=== PATIENT | female | born 1990 | race Caucasian/White ===

== ENCOUNTER → 2023-05-31 15:44 | Outpatient (CLI) | payer OTHER, SELFPAY ==
[2023-05-31 16:55] LABS: Add Manual Diff / Slide Review NO; Basophils Absolute Auto 0 /uL (0-100); Basophils Percent Auto 0.1 % (0-2); Eosinophils Absolute Auto 100 /uL (0-450); Eosinophils Percent Auto 1.4 % (2-4); Hematocrit 37.2 % (36-46); Hemoglobin 12.8 g/dL (12.0-16.0); Lymphocytes Absolute Auto 1600 /uL (1100-4500); Lymphocytes Percent Auto 19.3 % (25-40); Mean Corpuscular HGB Conc 34.3 % (30-36); Mean Corpuscular Volume 96.1 fL (80-100); Monocytes Absolute Auto 400 /uL (0-900); Monocytes Percent Auto 5.1 % (3-14); Neutrophils Absolute Auto 6100 /uL (1500-7000); Neutrophils Percent Auto 74.1 % (50-75); Platelet Count 255 X10^3/uL (150-400); Red Blood Cell Count 3.87 X10^6/uL (4.0-5.2); Red Cell Distribution Width 12.7 % (11.6-14.8); White Blood Cell Count 8.3 X10^3/uL (4.5-11.0)
[2023-05-31 16:56] LABS: Appearance Urine UA CLEAR; Bilirubin Urine UA NEGATIVE (NEGATIVE); Color Urine UA YELLOW; Glucose Urine UA NEGATIVE (Negative); Ketones Urine UA NEGATIVE (NEGATIVE); Leukocyte Esterase Urine UA NEGATIVE (NEGATIVE); Nitrite Urine UA NEGATIVE (Negative); Occult Blood Urine UA NEGATIVE (Negative); Protein Urine UA NEGATIVE (Negative); Urobilinogen Urine UA 0.2 E.U./dL (0.2)
[2023-05-31 17:27] LABS: pH Urine UA 6.5 (4.5-8.0)
[2023-05-31 19:03] LABS: Urine N gonorrhoeae NOT DETECTED
[2023-05-31 19:08] LABS: Urine Chlamydia NOT DETECTED
[2023-06-02 16:15] LABS: Varicella IgG Antibody 3661 index (Immune >165)
[2023-06-03 07:35] LABS: Hepatitis B Surface Antigen NEGATIVE s/c (NEGATIVE); Rubella Antibody IgG 65.7 IU/mL (>15)
[2023-06-03 07:49] LABS: HIV 1 & 2 Ab/Ag 4th Gen Combo NEGATIVE (NEGATIVE); Hep C Virus Ab w/Reflex Quant NEGATIVE s/c (NEGATIVE)
[2023-06-04 05:14] LABS: RPR Screen Non Reactive (Non Reactive)
== END ==
PROVIDERS: PCP Family Medicine; Referring Provider Family Medicine; Visit Provider Family Medicine
DX: Z34.01 Encounter for supervision of normal first pregnancy, first trimester (principal)
CPT/HCPCS: 36415; 80055; 81003; 84443; 86787; 86803; 86850; 86900; 86901; 87086; 87389; 87491; 87591

== ENCOUNTER → 2023-07-19 06:35 | Outpatient (CLI) | payer OTHER, SELFPAY ==
--- NOTE | 2023-07-19 06:36 | DI.US.S_ITS ---
PROCEDURE: US OB >= 14 WEEKS FETUS INDICATIONS: anatomy scan OUTSIDE/PRIOR DATING DATA: Last menstrual period (LMP): 03/02/2023. LMP-based estimated date of delivery (NANCY): 12/07/2023. First dating scan (date and location): 05/01/2023. Estimated date of delivery (NANCY) from first dating scan: 12/05/2023. The calculations are made using the or acute NANCY of 12/07/2023. TECHNIQUE: Real-time scanning was performed of the fetus, with image documentation and biometric measurements. Endovaginal scanning: Not performed COMPARISON: None. FINDINGS: General: A single living intrauterine gestation is present. Presentation: Vertex. Placenta: Placental position is posterior frontal , without previa. Amniotic fluid index: 16.1 cm, normal range is 5-24 cm. Single deepest vertical pocket is 4.4 cm. heart rate: 155 beats per minute. Maternal cervical canal: 3.8 cm long. Normal lower limit is 2.5 cm. biometrics: Biparietal diameter: 21 weeks 4 days Head circumference: 21 weeks 3 days Abdominal circumference: 21 weeks 2 days Femur length: 20 weeks 1 day Clinically estimated gestational age: 19 weeks 1 day Composite gestational age from present scan: 21 weeks 6 day Estimated weight and percentile: 381 g; 91% for gestational age. Anatomic survey: Neuro: Ventricles are non-dilated at less than 10 mm. Cisterna magna is normal at 3-11 mm. Cerebellum is normal in size and morphology. Nuchal skin fold: Normal at less than 6 mm between 14-21 weeks gestational age. Face: Nose and lips, facial profile are normal. Spine: No evidence for spina bifida. Heart: 4-chambered heart is present, with normal ventricular outflow tracts. Diaphragm: Diaphragm is intact. Stomach: Left-sided stomach is present. Kidneys: No hydronephrosis. Normal is less than 5 mm in 2nd trimester, less than 7 mm in 3rd trimester. Cord: 3-vessel cord has orthotopic insertion. Bladder: Normal in size. Extremities: All 4 extremities identified. IMPRESSION: 1. A single living intrauterine gestation is present. Ultrasound dating concordant with clinical dating. 2. Normal anatomic survey. We strive to produce accurate, complete, and clear reports of imaging services. To assist us in improving patient care, this report was composed using standard report templates and voice recognition software. Therefore, it may contain abnormal punctuation, insertions and/or omissions. Occasional wrong-word or sound-alike substitutions may occur. Though we review the report and make efforts to correct it, we do recommend that the report be read carefully in proper context to recognize any text inaccuracies. Dictated by: Tye Pendleton M.D. on 07/19/2023 at 15:22 Approved by: yTe Pendleton M.D. on 07/19/2023 at 15:29
== END ==
PROVIDERS: PCP Family Medicine; Referring Provider Family Medicine; Visit Provider Family Medicine
DX: Z34.02 Encounter for supervision of normal first pregnancy, second trimester (principal); Z3A.21 21 weeks gestation of pregnancy
CPT/HCPCS: 76811

== ENCOUNTER → 2023-08-31 08:31 | Outpatient (CLI) | payer OTHER, SELFPAY ==
[2023-08-31 10:25] LABS: Hemoglobin 10.9 g/dL (12.0-16.0)
[2023-08-31 11:09] LABS: GTT (PREG) 1 Hour PP 50gm Dose 100 mg/dL (76-139)
== END ==
LOC: LAB 08:32
PROVIDERS: PCP Family Medicine; Referring Provider Student in an Organized Health Care Education/Training Program; Visit Provider Student in an Organized Health Care Education/Training Program
DX: Z34.02 Encounter for supervision of normal first pregnancy, second trimester (principal); Z3A.26 26 weeks gestation of pregnancy
CPT/HCPCS: 36415; 82950; 85014; 85018

== ENCOUNTER → 2023-11-12 08:22 | Outpatient (CLI) | payer OTHER, SELFPAY ==
[2023-11-13 13:29] LABS: Strep Grp B PCR NEG for Grp B Strep
== END ==
PROVIDERS: PCP Family Medicine; Visit Provider Student in an Organized Health Care Education/Training Program
DX: Z34.03 Encounter for supervision of normal first pregnancy, third trimester (principal); Z3A.36 36 weeks gestation of pregnancy
CPT/HCPCS: 87653

== ENCOUNTER → 2023-11-12 08:43 | Outpatient (CLI) | payer OTHER, SELFPAY ==
[2023-11-12 10:22] LABS: Hematocrit 31.7 % (36-46); Hemoglobin 10.8 g/dL (12.0-16.0)
== END ==
PROVIDERS: PCP Family Medicine; Referring Provider Student in an Organized Health Care Education/Training Program; Visit Provider Student in an Organized Health Care Education/Training Program
DX: O99.019 Anemia complicating pregnancy, unspecified trimester (principal)
CPT/HCPCS: 36415; 85014; 85018; 87653

== ENCOUNTER 2023-11-27 22:18 | Inpatient (IN) | payer OTHER, SELFPAY ==
[2023-11-27 23:47] LABS: Add Manual Diff / Slide Review NO; Basophils Absolute Auto 0 /uL (0-100); Basophils Percent Auto 0.2 % (0-2); Eosinophils Absolute Auto 200 /uL (0-450); Eosinophils Percent Auto 1.9 % (2-4); Hematocrit 34.6 % (36-46); Hemoglobin 11.7 g/dL (12.0-16.0); Lymphocytes Absolute Auto 1200 /uL (1100-4500); Lymphocytes Percent Auto 12.3 % (25-40); Mean Corpuscular HGB Conc 33.7 % (30-36); Mean Corpuscular Hemoglobin 29.6 PG (26-34); Mean Corpuscular Volume 87.9 fL (80-100); Monocytes Absolute Auto 800 /uL (0-900); Monocytes Percent Auto 8.2 % (3-14); Neutrophils Absolute Auto 7700 /uL (1500-7000); Neutrophils Percent Auto 77.4 % (50-75); Platelet Count 206 X10^3/uL (150-400); Red Blood Cell Count 3.94 X10^6/uL (4.0-5.2)
[2023-11-28] MEDS: LACTATED RINGERS 1,000 ML 100 ML IV ×5 (02:16→20:41)
--- NOTE | 2023-11-28 03:46 | P.PCN_ITS ---
[facility] <Tequila Sarabia, DO - Last Filed: 11/28/23 13:26> Pre-procedure Procedure: Continuous Lumbar Epidural for L&D (with dural puncture) Attending OB provider: Marion TELLO/ASHANTI narrative: 33yo in labor requesting epidural. See pre-anesthesia evaluation for further details. ASA Class: II Labs: Hct 34.6 % (36-46) L 11/27/23 23:08 Plt Count 206 X10^3/uL (150-400) 11/27/23 23:08 Medications: Current Medications Generic Name Dose Route Start Last Admin Trade Name Freq PRN Reason Stop Dose Admin Calcium Carbonate 1,000 mg 11/27/23 23:16 Calcium Carbonate 500 Mg Tab PO Q2HR PRN Dyspepsia Carboprost Tromethamine 250 mcg 11/27/23 23:16 Carboprost 250 Mcg/Ml Ampul IM Q90M PRN Bleeding Diphenhydramine HCl 25 mg 11/28/23 03:44 Diphenhydramine 50 Mg/Ml Vial IV Q10M PRN Pruritis Ephedrine Sulfate 10 mg 11/28/23 03:44 Ephedrine 50 Mg/Ml Vial IV Q5M PRN Blood pressure decrease more than 20% of baseline. Fentanyl 50 mcg 11/27/23 23:16 Fentanyl 100 Mcg/2 Ml Inj IV Q1H PRN Pain, Moderate (4-6) Lactated Ringer's 1,000 mls @ 100 mls/hr 11/27/23 23:30 11/28/23 03:38 Lactated Ringers IV 11/28/23 09:29 100 mls/hr CONT CORBY Administration Oxytocin/Lactated Ringer's 30 unit in 500 mls @ 200 mls/hr 11/27/23 23:16 Oxytocin Premix IV CONT PRN Bleeding Protocol Tranexamic Acid 1,000 mg/ 100 mls @ 600 mls/hr 11/27/23 23:16 Sodium Chloride IV NOW PRN Bleeding FENT 2MCG/ML BUPIV 0.125% EPI 200 mcg in 100 mls @ 6 mls/hr 11/28/23 03:45 Fentanyl/Bupiv/Ns 2mcg/Ml - 0.125% EPIDURAL CONT CORBY Lidocaine HCl 20 ml 11/27/23 23:16 Lidocaine 1% 20 Ml INJ INTRA-OP PRN Post Delivery Methylergonovine Maleate 0.2 mg 11/27/23 23:16 Methylergonovine 0.2 Mg Tablet PO Q6HR PRN Heavy Bleeding Methylergonovine Maleate 0.2 mg 11/27/23 23:16 Methylergonovine 0.2 Mg/Ml Vial IM NOW PRN Bleeding Mineral Oil 30 ml 11/27/23 23:16 Mineral Oil 30 Ml Udc TOP PRN PRN Version Misoprostol 800 mcg 11/27/23 23:16 Misoprostol 200 Mcg Tablet MD NOW PRN Bleeding Misoprostol 400 mcg 11/27/23 23:16 Misoprostol 200 Mcg Tablet SL NOW PRN Bleeding Nalbuphine HCl 2.5 mg 11/28/23 03:44 Nalbuphine 20 Mg/Ml Ampul IV Q10M PRN Pruritis Naloxone HCl 0.2 mg 11/27/23 23:16 Naloxone 0.4 Mg/Ml Vial IV Q2MIN PRN Opiate Reversal Ondansetron HCl 4 mg 11/27/23 23:16 Ondansetron 4 Mg/2 Ml Inj IV Q4HR PRN Nausea And Vomiting Oxytocin 10 unit 11/27/23 23:16 Oxytocin 10 Unit/Ml Vial IM NOW PRN Bleeding Allergies: Allergies Allergy/AdvReac Type Severity Reaction Status Date / Time amoxicillin Allergy Severe hives Verified 11/12/23 08:21 bill Allergy Intermediate Swelling Verified 11/12/23 08:21 of Lip/Tongue/Throat pecan nut Allergy Intermediate hives Verified 11/12/23 08:21 shellfish derived Allergy Intermediate hives Verified 11/12/23 08:21 Sulfa (Sulfonamide Allergy Intermediate Hives Verified 11/12/23 08:21 Antibiotics) melatonin AdvReac Severe night Verified 11/12/23 08:21 terrors gluten AdvReac Mild Abdominal Verified 11/12/23 08:21 Pain Procedure Insertion date: 11/28/23 Insertion time: 03:20 Prep/Local: 1% lidocaine (Chloraprep) Interspace: L2-3 Patient position: sitting Needle: 18 gauge Hustead (27g 5 Pencan for dural puncture) Loss of resistance with: saline NANCY at (cm): 6 Catheter placed at SKIN (cm): 14 Catheter in SPACE (cm): 8 Insertion: Yes CSF, No Blood, No Paresthesia with insertion, No Paresthesia with injection and No Test dose reaction Initial Medications TEST DOSE time: 03:21 TEST DOSE: 1.5% lidocaine with epinephrine 1:200k (mL): 3 BOLUS DOSE time: 03:22 BOLUS DOSE (mL): 4 BOLUS DOSE med: other (2 ml same as test dose, 2 ml of 2% lido PF) Infusion INFUSION: 0.125% bupivacaine and with fentanyl 2 mcg/mL Initial rate (mL/hr): 8 Subsequent interventions: Epidural infusion started 03:35. Pt reports feeling just tightening and pressure with contractions, denies pain. Able to move BLE. Pt was 2 cm on check prior to epidural placement. KR 07:15 - Pt reports she is starting to feel a little uncomfortable with contractions; has pushed PCEA button x 2 since epidural placed. She was 4 cm on last check. Moving BLE well. Increased epidural rate to 10 ml/hr. Pt declined epidural bolus. KR 13:20 - Checked on pt. At first she said she was just a little uncomfortable with pain and pressure with contractions. She says she has been pushing her PCEA button but hasn't noticed much change in her pain level. When questioned further, she said pain was 5-6/10. She can move BLE; RLE is heavier than LLE. She was 7 cm on last check. Sensory level checked, and pt has intact cold sensation throughout abdomen. Epidural bolus of 10 ml of 2% lidocaine PF given. No changes to pump settings at this time. KR Post-procedure Anesthesia date START: 11/28/23 Anesthesia time START: 03:12 <Latonia Evans CRNA - Last Filed: 11/28/23 21:29> Infusion Subsequent interventions: Epidural infusion started 03:35. Pt reports feeling just tightening and pressure with contractions, denies pain. Able to move BLE. Pt was 2 cm on check prior to epidural placement. KR 07:15 - Pt reports she is starting to feel a little uncomfortable with contr actions; has pushed PCEA button x 2 since epidural placed. She was 4 cm on last check. Moving BLE well. Increased epidural rate to 10 ml/hr. Pt declined epidural bolus. KR 13:20 - Checked on pt. At first she said she was just a little uncomfortable with pain and pressure with contractions. She says she has been pushing her PCEA button but hasn't noticed much change in her pain level. When questioned further, she said pain was 5-6/10. She can move BLE; RLE is heavier than LLE. She was 7 cm on last check. Sensory level checked, and pt has intact cold sensation throughout abdomen. Epidural bolus of 10 ml of 2% lidocaine PF given. No changes to pump settings at this time. KR 1415: Called to bedside by RN. Patient having pain. Positioned changed, head up more. Bolused with 10cc 2% lido. Rate increased to 12cc/hr. [facility] 1520: called to bedside, patient requests same bolus, pushing. Had good relief with previous. Bolused 10cc 2% lido. 1825: Called to bedside, patient still pushing, requests same bolus. Bolused 10cc 2% lido. 185: Csection called. Pump off, epidural removed. Post-procedure Anesthesia date END: 11/28/23 Anesthesia time END: 19:00 Post-procedure Anesthesia Assessment: Yes CV function: HR/BP stable, Yes Resp function: RR/sat/airway adequate, Yes Post-op hydration adequate, Yes Pain control adequate, Yes Nausea & vomiting absent, Yes Temperature > 36 C, Yes Mental status appropriate and Yes Anesthesia complications
--- NOTE | 2023-11-28 08:32 | P.HPOB_ITS ---
OB HPI Date/Time Date of admission: 11/28/23 Date Patient Seen: 11/28/23 Time Patient Seen: 08:30 History of Present Condition Chief complaint: labor : 1 Para: 0 Estimated Date of Delivery: 12/07/23 Estimated Gestational Age (weeks): 38+5 Narrative: Nancy Carias is a 33 year old female Comments: admitted for ruptured membranes overnight at 8:45pm. She presented with painful contractions and leaking thin-meconium stained fluid. History of Present care: good care Dating criteria: LMP confirmed by 1st trimester US Ultrasounds: normal mid trimester US Narrative: Ultrasound Ultrasound Details:: Dating u/s 05/01/23 - Single IUP. CRL consistent with 8w6d. FHT 167. Normal adnexa. Anatomy US 07/19/23- normal anatomy, posterior placenta, EFW 91%ile Specific Issues/Plans G1, Norm (ADEA Cutters); it's a boy! Anemia (10.9/32.0)--> on PO iron; [ x] repeat CBC 36wks (10.8/31.7) AMA--> [x] cfDNA- low risk XY Anxiety/depression --> on Lexapro 20mg daily EFW 91%ile on anatomy; Excessive weight gain (48lbs at 33wks) Assigned to Betty Preadmission Labs Blood type: B (+) positive -: Antibody screen: negative, Cystic fibrosis screen: unknown, GBS status: negative, HBsAG: negative, HIV: negative, HSV 1: unknown, HSV 2: unknown and RPR/VDLR: negative -: Chlamydia screen: not detected and Gonorrhea screen: not detected -: Rubella: immune and Varicella: immune HCT: 34.6 HCAB: negative PAP: Normal 1 hr GTT: 100 Evaluation Evaluation Baseline heart rate: 140 Variability: Moderate (11-25) monitor accelerations: Present Monitor Decelerations: Absent Status: Category l Dilation (cm): 2 Effacement (%): 50 station: -1 Comments: grossly ruptured [facility] Medical History (Updated 10/22/23 @ 10:16 by Jeanie Hernández DO) Depression Elevated bilirubin Irregular menstrual cycle (~2003) Heavy menstrual period (~1999) GERD (gastroesophageal reflux disease) (~2015) COVID MRSA (methicillin resistant Staphylococcus aureus) (~2018) Chicken pox (~1993) Ovarian cyst (~2011) Gastric ulcer Surgical History (Updated 11/14/22 @ 20:46 by Scarlett Lazar) Anesthesia H/O right knee surgery (~2006) History of appendectomy (~2016) Family History (Updated 04/18/23 @ 13:21 by Rosemarie Myers RN) Father History of heart disease Alcoholic Schizophrenia Suicide Elevated bilirubin Mother Prediabetes Hypertension Mental health problem History of bipolar disorder Smoker Alcoholic Drug abuse Brother Mental health problem Depression Anxiety Suicide attempt Grandfather Diabetes mellitus Colon cancer Grandfather History of heart disease Hypertension Stroke Alcoholic Smoker Grandmother Diabetes mellitus History of heart disease Hypertension Lung cancer Smoker Aunt Rheumatoid arthritis Lupus Social History marital status: number of children: 0 household members: spouse lives independently: Yes caregiver/support person: No housing: house pets and animals: Yes (small dog) education level: master's degree (Mental health counseling) occupational status: employed (juvenile probation counselor) current occupational exposures/hazards: No special iliana needs: No [facility]: [facility]) seatbelt use: always helmet use: Yes water heater temp set < 120 deg: Yes working smoke detector in home: Yes fire extinguisher in home: Yes carbon monox detector in home: Yes firearms in home: No do you feel safe at home: Yes Smoking Status: Former smoker second hand exposure: No alcohol intake: former (occasionally when not ) substance use type: marijuana (not while /) during the past year weight has: other (fluctuated while moving, but back to baseline now.) well-balanced diet: daily or most days daily servings fruits/ve or more times/day caffeine: Yes (up to 12 oz coffee in AM) Type(s) of exercise: walking, aerobic (elliptical workplace trainer and assessor), swimming and other (hiking) Meds Home Medications and Allergies Home Medications Medication Instructions Recorded Confirmed Type vitamin-ferrous sulfate tab PO 04/18/23 11/27/23 History 27 mg iron-folic acid 0.8 mg tablet [id number] antigen-[id number] 0.5 ml IM ONCE #1 ea 10/22/23 11/27/23 Rx adjuvant(PF) 120 mcg/0.5 mL IM suspension, kit escitalopram oxalate 20 mg tablet 20 mg PO DAILY #90 tabs 10/29/23 11/27/23 Rx Allergies Allergy/AdvReac Type Severity Reaction Status Date / Time amoxicillin Allergy Severe hives Verified 11/12/23 08:21 bill Allergy Intermediate Swelling Verified 11/12/23 08:21 of Lip/Tongue/Throat pecan nut Allergy Intermediate hives Verified 11/12/23 08:21 shellfish derived Allergy Intermediate hives Verified 11/12/23 08:21 Sulfa (Sulfonamide Allergy Intermediate Hives Verified 11/12/23 08:21 Antibiotics) melatonin AdvReac Severe night Verified 11/12/23 08:21 terrors gluten AdvReac Mild Abdominal Verified 11/12/23 08:21 Pain Review of Systems Review of Systems ROS: Yes All systems reviewed with the patient and are negative except as otherwise documented OB Exam Vital signs Blood Pressure: 124/87 Pulse Rate: 95 Temperature: 98.2 F HENMT Head: normal to inspection Resp Effort & Inspection: normal respiratory effort and able to speak in complete sentences Cardio Rate: regular rate Rhythm: regular rhythm Extremities Lower extremity: Yes normal to inspection GI Other: gravid, nontender, nondistended Objective Labs 11/27/23 23:08 Labs: Laboratory Results - last 24 hr 11/27/23 23:08 WBC 10.0 RBC 3.94 L Hgb 11.7 L Hct 34.6 L MCV 87.9 MCH 29.6 MCHC 33.7 RDW 15.0 H Plt Count 206 Neut % (Auto) 77.4 H Lymph % (Auto) 12.3 L [place] % (Auto) 8.2 Eos % (Auto) 1.9 L Baso % (Auto) 0.2 Neut # (Auto) 7700 H Lymph # (Auto) 1200 [place] # (Auto) 800 Eos # (Auto) 200 Baso # (Auto) 0 Blood Type B Positive Antibody Screen Negative Assessment and Plan Assessment and Plan Assessment and Plan narrative: 33yo at 38+5wks admitted with spontaneous rupture of membranes in latent labor. She recieved an epidural shortly after admission. -CBC, T&S on admission -continuous EFM -GBS neg, ppx not indicated -PPH risk low -VTE risk low, SCDs with epidural -anticipate L&D Counseling: Common procedures and interventions related to the management of were explained to the patient, including assistance at vaginal delivery with episiotomy, vacuum, or forceps, use of medications to stop premature labor or induce labor, and assessment including auscultation (listening to the heart), use of electronic monitoring (external and / or internal), and use of scalp electrode and/or intrauterine pressure catheter.? It was also explained that approximately 20-30% of mothers have a need for delivery during their labor course. It was explained to the patient that , labor and delivery are ordinarily normal physiological events and can be expected to provide a healthy outcome for mother and baby in the majority of cases. However, there are complications that may arise during , labor, and delivery, such as: hemorrhage requiring administration of blood and/or blood products, surgical intervention, possibly even hysterectomy for life-saving purposes; possibility of infection requiring antibiotics, prolonged hospital stay, and rarely surgical intervention; possibility of blood clots;? possibility of retained products of conception requiring surgical intervention;? possibility of serious tears or injury to the vagina, cervix, perineum, or rectum;? possibility of injury to abdominal structures if delivery is required;? and rarely maternal or may occur. Time-Based Coding :: [20min] spent with patient and on the chart (including review of chart, obtaining history, exam, reviewing outside data, placing orders, documenting exam and treatment plan, and counseling patient) on [11/28/23].
[2023-11-28 08:43] VITALS: BP 124/87; PULSE 95; TEMP 36.8
[2023-11-28] MEDS: OXYTOCIN PREMIX 30 UNIT/500 ML PLAST..BAG IV (09:38)
[2023-11-28] MEDS: FENT 2MCG/ML BUPIV 0.125% EPI 200 MCG/100 ML PLAST..BAG 6 MCG EPIDURAL ×2 (09:40→16:26)
[2023-11-28] MEDS: ONDANSETRON 4 MG/2 ML INJ IV (14:48)
[2023-11-28] MEDS: CALCIUM CARBONATE 500 MG TAB 1000 MG PO (17:12)
--- NOTE | 2023-11-28 18:54 | PM.OBPNLAB ---
Date/Time Date Patient Seen: 11/28/23 Time Patient Seen: 18:56 Pain Control Pain control: other (not toelrating pain well despite multiple ) Pelvic Exam Dilation (cm): 10 Effacement (%): 100 station: -1 Amniotic membrane status: Ruptured Status status: Category ll Heart Rate Baseline: 150 Monitor Accelerations: Present Monitor Decelerations: Variable Monitor Variability: Moderate Assessment and Plan Comments: 33yo at 38+5wks admitted with spontaneous rupture of membranes 24 hours. She is complete and has been pushing for 3 hours with minimal to no descent. FHT with variables bt good recovery. Discussed options of continued pushing for approximately 1 more hour vs forceps vs Cs and she prefers CS. Consent form signed. ## Arrest of descent - Turn off pitocin - no signs of intra-amniotic infetion - Surgical ppx with Ancef - PPH meds in the OR - move to CS as soon as OR team present and ready counseling: It was explained to the patient that a section is a surgery to deliver the baby through an incision in the abdominal wall and uterus.? All procedures can be associated with risk and unforeseen complications, which can be immediate or delayed.? Risks and complications of section include, but are not limited to:? infection of the uterus, pelvic organs, or skin; inadvertent injury to internal organs such as the bowel, bladder, or possibly even the baby; blood loss, transfusion, and/or life-threatening hemorrhage requiring hysterectomy; blood clots in the legs, pelvic organs, or lungs; adverse reaction to medications or anesthesia during surgery; development of placenta accreta spectrum in a subsequent ; and increased risk of section in a subsequent . All questions were answered. Pt agreeable to proceeding with primary CS for arrest of descent
[2023-11-28] MEDS: CITRIC ACID/SODIUM CITRATE 15 ML SOLUTION 30 ML PO (18:58)
--- NOTE | 2023-11-28 19:08 | PM.OBPNLAB ---
Date/Time Date Patient Seen: 11/28/23 Time Patient Seen: 17:45 Pain Control Pain control: tolerating well and epidural Pelvic Exam Dilation (cm): 10 Effacement (%): 100 station: +2 Amniotic membrane status: Ruptured Contractions Pitocin rate (mU/min): 10 Status status: Category ll Heart Rate Baseline: 140 Monitor Accelerations: Present Monitor Decelerations: Episodic and Variable Monitor Variability: Moderate Assessment and Plan Assessment: active labor Plan: continuous present management Comments: 33yo at 38+5wks admitted in latent labor with SROM last night. She progressed to c/c/+2 with pitocin augmentation, noted to be completely dilated at 1530, and has been pushing for approximately 2hrs. After 2hrs of pushing, minimal progress was noted. -discussed pushing with patient, and recommended trying to push for 4hrs if possible -briefly discussed alternatives would be a trial of operative vaginal delivery or primary
[2023-11-28] MEDS: CEFAZOLIN 2 GM/100 ML PREMIX 100 ML IV (19:53)
--- NOTE | 2023-11-28 20:07 | SUR.OPER ---
Supine on Padded OR bed, head on pillow, safety belt at thigh, arms secured on padded arm boards at <90 degrees abduction. Bump under right buttock. Legs uncrossed with pillow under knees, gel pad to heels, tape over blanket to lower legs.
--- NOTE | 2023-11-28 20:16 | SUR.OPER ---
Viable baby boy born at 2010. Placenta delivered at 2016. Preprocedure FHT= 154 BPM.
[2023-11-28] MEDS: TRANEXAMIC ACID 1,000 MG in SODIUM CHLORIDE 0.9% 100 ML 600 MG IV (20:29)
--- NOTE | 2023-11-28 20:58 | P.OP_ITS ---
Operative Date/Time/Diagnoses Date of procedure: 11/28/23 Time of procedure: 20:00 Pre-op diagnosis: 1. Dila intrauterine gestation at 38+5 weeks 2. Arrest of descent 3. Anemia of 4. Advanced maternal age Post-op diagnosis: same Procedure & Clinicians Procedure: Primary low transverse section Same procedure as scheduled: Yes Indications: 33yo at 38+5 weeks EGA admitted in latent labor with spontaneous rupture of membranes at home. She progressed to complete cervical dilation with pitocin augmentation, and pushed for 3hrs before she reported exhaustion. Given maternal exhaustion and minimal descent despite good maternal pushing efforts, she was counseled and consented for PLTCS. Surgeon: Jeanie Hernández Click Yes if Unassisted: No Waste Specialist: Amarilis Foster Reason for Waste Specialist: Waste Specialist was necessary for timely, efficient, and safe completion of the procedure. Anesthesia Type: Spinal Operative Notes Findings: Normal-appearing uterus and bilateral fallopian tubes and ovaries. Thin meconium stained fluid noted with delivery. Delivery productive of a viable male in cephalic presentation with APGARS 8/9 and weighing 3843g. Closure Type: primary Specimen(s): cord blood Intraoperative meds administered: Duramorph, Ketorolac, Pitocin and Tranexamic acid Applied: Catheter Estimated Blood Loss (mL): 900 Blood products transfused: none Procedure in detail: The risks, benefits, indications and alternatives of the procedure were reviewed with the patient and informed consent was obtained. The patient was taken to the operating room where spinal anesthesia was obtained without difficulty and was found to be adequate. Sequential compression devices were placed bilaterally for VTE prophylaxis. She was then prepped and draped in the normal, sterile fashion in the dorsal supine position with a leftward tilt. She received 2g Ancef & 500mg Azithromycin for surgical prophylaxis. A Pfannenstiel skin incision was then made with the scalpel and carried through to the underlying layer of fascia. The fascia was digitally. The rectus muscles were then at the midline. The peritoneum was identified, and entered digitally. The peritoneal incision was then extended horizontally, superiorly and inferiorly, with good visualization of the bladder. The Blayne retractor was then inserted. The vesicouterine peritoneum was then identified, grasped with pick-ups, and entered sharply with Metzenbaum scissors. This incision was then extended laterally and the bladder flap was created digitally. The lower uterine segment was incised in a transverse fashion with the scalpel. The uterine incision was then extended manually in a cephalad/caudad direction. The infant?s head was elevated to the level of the hysterotomy, then delivered atraumatically through the hysterotomy without difficulty, followed by the body.? The cord was doubly clamped and cut after a 60sec delay with the infant handed off to the waiting pediatrics team. The placenta was then manually extracted. The uterus was exteriorized and cleared of all clots and debris. The uterine incision was repaired with 0-vicryl in a running, locked fashion. The left uterine artery was noted to be transected during delivery, and this was suture ligated and incorporated into the first layer closure. A second layer using 0-monocryl was then used to imbricate the hysterotomy with excellent hemostasis achieved. The uterus was returned to the abdomen and the hysterotomy was again noted to be hemostatic. The paracolic gutters were cleared of all clot and debris. The Blayne retractor was then removed. The fascia was reapproximated with 0-vicryl in a running fashion. The subcutaneous layer was closed with 3-0 vicryl in simple, interrupted sutures. The skin was closed with 4-0 monocryl in a subcuticular fashion. The incision was then dressed with steri-strips and a pressure dressing was applied. At the completion of the case, a Crede maneuver was performed with good uterine tone and minimal vaginal bleeding noted.? The patient tolerated the procedure well. Sponge, lap and needle counts were correct x3. The patient was taken to the recovery room in stable condition. The patient is a candidate for a trial of labor after . Complications: none Post-operative Condition: stable Disposition: PACU Aftercare: routine postop
[2023-11-28 20:59] VITALS: BP 111/56; PULSE 89; RESP 14; TEMP 37; O2SAT 100
[2023-11-28 21:03] VITALS: BP 128/47; PULSE 94; RESP 11; O2SAT 100
[2023-11-28 21:08] VITALS: BP 124/91; PULSE 92; RESP 11; O2SAT 100
[2023-11-28 21:14] VITALS: BP 110/73; PULSE 91; RESP 11; O2SAT 100
[2023-11-28 21:17] VITALS: BP 151/64; PULSE 92; RESP 11; TEMP 37.1; O2SAT 100
[2023-11-29] MEDS: KETOROLAC 30 MG/ML VIAL IV ×3 (02:57→20:04)
[2023-11-29] MEDS: ACETAMINOPHEN 325 MG TABLET 650 MG PO ×4 (02:57→19:58)
[2023-11-29 06:28] LABS: Add Manual Diff / Slide Review NO; Basophils Absolute Auto 0 /uL (0-100); Basophils Percent Auto 0.1 % (0-2); Eosinophils Absolute Auto 0 /uL (0-450); Eosinophils Percent Auto 0.2 % (2-4); Hemoglobin 9.4 g/dL (12.0-16.0); Lymphocytes Absolute Auto 1200 /uL (1100-4500); Lymphocytes Percent Auto 6.6 % (25-40); Mean Corpuscular HGB Conc 33.5 % (30-36); Mean Corpuscular Hemoglobin 29.7 PG (26-34); Mean Corpuscular Volume 88.7 fL (80-100); Monocytes Absolute Auto 1400 /uL (0-900); Monocytes Percent Auto 7.7 % (3-14); Neutrophils Absolute Auto 15300 /uL (1500-7000); Neutrophils Percent Auto 85.4 % (50-75); Platelet Count 208 X10^3/uL (150-400); Red Blood Cell Count 3.16 X10^6/uL (4.0-5.2); Red Cell Distribution Width 15.4 % (11.6-14.8)
--- NOTE | 2023-11-29 08:32 | P.PNOB_ITS ---
Subjective - OB Subjective Patient comments: no complaints, pain well controlled and incisional pain baby status: doing well feeding status: exclusively breast feeding Date Patient Seen: 11/29/23 Time Patient Seen: 08:32 Interval history: Nancy is doing extremely well with no nausea and vomiting. Her pain is well controlled. Her baby is also doing extremely well. She has not started passing gas as yet but denies nausea and vomiting. Exam Vital Signs (past 8 hours): Oxygen Delivery Method Room Air Const General: cooperative and comfortable Nutritional Appearance: average body habitus Orientation: alert and oriented x3 HENMT Head: normal to inspection, atraumatic and abrasion Ears: hearing grossly normal bilaterally Face and sinus: face symmetric Eyes General: appearance normal, both eyes and all related structures Conjunctivae: conjunctivae normal Sclera: sclerae normal EOM: EOM intact bilaterally Neck Neck: normal visual inspection Resp Effort & Inspection: normal respiratory effort and able to speak in complete sentences Auscultation: clear to auscultation bilaterally Cardio Rate: regular rate Rhythm: regular rhythm Heart Sounds: S1 normal, S2 normal and no murmurs GI Inspection: normal to inspection and incision (Surgical dressing clean and dry) Palpation: soft, no hepatosplenomegaly and tender (Mild, diffuse postsurgical tenderness) External Female Exam: other (No significant bleeding noted) Extrem General: no calf tenderness Psych Appearance: grossly normal Mental Status: mental status grossly normal Speech and Movement: speech and movement normal Mood: congruent mood Affect: normal affect Attitude: cooperative Thought Process: normal Thought Content: normal Judgment: judgment good Objective Labs 11/29/23 06:00 Labs: Laboratory Results - last 24 hr 11/29/23 06:00 WBC 18.0 H D RBC 3.16 L Hgb 9.4 L Hct 28.0 L MCV 88.7 MCH 29.7 MCHC 33.5 RDW 15.4 H Plt Count 208 Neut % (Auto) 85.4 H Lymph % (Auto) 6.6 L [place] % (Auto) 7.7 Eos % (Auto) 0.2 L Baso % (Auto) 0.1 Neut # (Auto) 06648 H Lymph # (Auto) 1200 [place] # (Auto) 1400 H Eos # (Auto) 0 Baso # (Auto) 0 Assessment & Plan Assessment and Plan (1) delivery, delivered, current hospitalization: Status: Acute (2) Postoperative anemia due to acute blood loss: Status: Acute Plan day: 1 plan OB: routine postop care Comments: Patient will receive iron infusion today prior to discontinuation of her IV. Anticipate discharge in a.m.. Time-Based Coding :: [TOTAL MINUTES] spent with patient and on the chart (including review of chart, obtaining history, exam, reviewing outside data, placing orders, documenting exam and treatment plan, and counseling patient) on [DATE].
[2023-11-29] MEDS: LANOLIN OINT 7 GM 1 APPLIC TOP (08:38)
[2023-11-29] MEDS: PRENATAL VIT,CALC/IRON/FOLIC 1 TABLET 1 TAB PO (08:39)
[2023-11-29] MEDS: WITCH HAZEL/GLYCERIN PADS 1 EACH TOP (08:39)
[2023-11-29] MEDS: ferumoxytoL 510 MG in SODIUM CHLORIDE 0.9% 100 ML 468 MG IV (10:23)
[2023-11-30] MEDS: ACETAMINOPHEN 325 MG TABLET 650 MG PO ×2 (02:03→07:59)
[2023-11-30] MEDS: KETOROLAC 30 MG/ML VIAL IV (02:03)
[2023-11-30] MEDS: PRENATAL VIT,CALC/IRON/FOLIC 1 TABLET 1 TAB PO ×2 (07:59→08:07)
[2023-11-30] MEDS: FERROUS SULFATE 325 MG TABLET PO (08:00)
[2023-11-30] MEDS: DOCUSATE 100 MG CAPSULE PO (08:00)
[2023-11-30] MEDS: IBUPROFEN 600 MG TABLET PO (08:07)
[2023-11-30] MEDS: LANOLIN OINT 7 GM 1 APPLIC TOP (08:08)
--- NOTE | 2023-11-30 08:45 | PM.OBDS.1 ---
Discharge Providers Provider Date of admission: 11/27/23 22:18 Discharge Date: 11/30/23 Primary care physician: Marion Davidson MD Consults: 11/27/23 23:16 Consult to Anesthesiology Urgent Comment: Consulting Provider: Anesthesiologist Reason for consultation: Epidural 11/28/23 21:49 Consult to Insurance Follow Up Representative Routine Comment: Discharge provider: Nya Rodriguez MD Summary Hospital Course Date Patient Seen: 11/30/23 Time Patient Seen: 08:45 Diagnoses: Second-stage arrest with primary low-transverse section Hospital Course: Patient arrived on Labor and delivery after spontaneous rupture membranes. She received an epidural catheter for pain control and had Pitocin augmentation of labor. Patient had arrest of labor in 2nd stage and patient underwent a primary low-transverse section. Patient is urinating and ambulating well. She is passing gas. She is breast-feeding without difficulty. Pain is well controlled with Motrin and Tylenol. Patient did receive IV iron for acute and chronic blood-loss anemia Peripartum Data Delivery Method: Section (Second-stage arrest) Procedures: Pitocin augmentation of labor, epidural catheter, primary low-transverse section complications: none 1: Gender: Male Disposition of : home Discharge Diagnosis (1) delivery, delivered, current hospitalization: Status: Acute (2) Postoperative anemia due to acute blood loss: Status: Acute Status at Discharge Cognitive/behavioral status at discharge: oriented Functional status at discharge: independent ambulation Overall status at discharge: patient is progressing back to baseline Time Spent with Patient Time attestation: Total time spent providing and/or coordinating discharge services: Time spent: Less than 30 minutes Objective Labs 11/29/23 06:00 Exam Vital Signs (past 8 hours): Blood pressure 126/66, pulse of 87, temperature 97.3? Oxygen Delivery Method Room Air Narrative Exam Narrative: Abdomen is soft, nontender. Uterus is firm, at U -1, nontender. Dressing is removed and incision is clean, dry, intact. Mild lochia. Extremities with trace edema and nontender. Discharge Plan Discharge Plan Patient Disposition: Home Discharge orders & Medications Prescriptions: New ferrous sulfate 325 mg (65 mg iron) Tablet 325 mg PO BID Qty: 60 0RF docusate sodium 100 mg Capsule 100 mg PO DAILY Qty: 30 0RF ibuprofen 600 mg Tablet 600 mg PO Q6H Qty: 30 0RF Continued escitalopram oxalate 20 mg tablet 20 mg PO DAILY Qty: 90 3RF vit-ferrous sulfat-FA 27 mg iron- 0.8 mg tablet PO Discontinued [id number] antigen-AS01E (PF) 120 mcg/0.5 mL suspension for reconstitution 0.5 ml IM ONCE Qty: 1 0RF Follow up/Referrals: Heydi Ngo MD [Physician] - (Please follow up for you 1 week incision check on with Dr. Ngo 12/05/2023 at 9:00 am. Please check in at 8:45am! Follow up for your 6 [address] follow up with Dr. Olmos on 01/09/2024 at 10:00am and please check in at 9:45am!) Jeanie Hernández DO [Physician] - 1 Week (incision check, 6 weeks ) Diet/Activity/Treatments Diet: Regular Activity: Nothing in vagina or lifting over 10 lb for 6 weeks Skin/Wound/Dressing Care Report to your healthcare provider any signs of infection, such as:: chills, fever, increased pain, unusual drainage and unusual redness Dressing: Can get Steri-Strips wet just pat dry, get wet and rub off in 1 week Visit Report/Discharge Packet Stand Alone Forms: Patient Portal/API, Stroke Signs & Symptoms Discharge Data Primary Care Provider: Marion Davidson
== END 2023-11-30 10:30 | disposition home or self-care (01) | DRG 787 ==
PROVIDERS: Student in an Organized Health Care Education/Training Program; Admitting Provider Family Medicine; PCP Family Medicine; Referring Provider Family Medicine; Visit Provider Family Medicine
PROC: 10D00Z1 Extraction of Products of Conception, Low, Open Approach (ICD-10-PCS; CPT 59514; principal; 2023-11-28 20:00)
DX: O42.02 Full-term premature rupture of membranes, onset of labor within 24 hours of rupture (principal); D62 Acute posthemorrhagic anemia; O75.81 Maternal exhaustion complicating labor and delivery; O90.81 Anemia of the puerperium; O76 Abnormality in fetal heart rate and rhythm complicating labor and delivery; O62.1 Secondary uterine inertia; Z3A.38 38 weeks gestation of pregnancy; Z37.0 Single live birth
CPT/HCPCS: 36415; 59050; 59510; 59514; 84112; 85025; 86850; 86900; 86901; G0379; J0690; J1885; J2274; J2405; J2590; Q0138

== ENCOUNTER → 2024-01-21 08:58 | Outpatient (CLI) | payer OTHER, SELFPAY | PROVIDERS: PCP Family Medicine; Visit Provider Student in an Organized Health Care Education/Training Program | DX: R30.0 Dysuria (principal) | CPT/HCPCS: 87077; 87086; 87186 ==